=== PATIENT | female | born 1985 | race Caucasian/White ===

== ENCOUNTER → 2016-11-15 | Outpatient (CLI) | payer OTHER ==
--- NOTE | 2016-11-15 13:42 | REPMRS ---
Patient History The patient states she has not had a clinical breast exam in over a year. Family history of endometrial cancer in mother at age 47, breast cancer in paternal aunt, and colorectal cancer in maternal grandmother at age 72. Benign stereotactic core biopsy of the left breast, 2012. Taking hormonal contraceptives for 16 years. Digital Mammo Screening Bilat: November 15, 2016 - Exam #: [id number] Bilateral CC and MLO view(s) were taken. Technologist: Suzanne Church, Technologist No prior studies available for comparison. FINDINGS: The breast tissue is extremely dense which could obscure a lesion on mammography. There is no evidence of cancer on this mammogram. ASSESSMENT: BI-RADS/ACR category 2 mammogram. Benign finding(s). Recommendation Routine screening mammogram of both breasts in 1 year (for women over age 40). This mammogram was interpreted with the aid of an FDA-approved computer-aided dectection system. Electronically Signed By: Wes Ralph MD 11/15/16 5189
== END ==
LOC: M RAD 12:19
PROVIDERS: ATTEND Physician Assistant
DX: Z12.31 Encounter for screening mammogram for malignant neoplasm of breast (principal)

== ENCOUNTER → 2017-04-30 | Outpatient (REF) | payer OTHER ==
[2017-04-30 18:35] LABS: RETIC HEMOGLOBIN EQUIVALENT 36.3 pg (24-36); RETICULOCYTE # 70.8 10^9/L (17-77); RETICULOCYTE % 1.7 % (0.5-1.5)
[2017-04-30 18:40] LABS: FOLATE 21.4 NG/ML; VITAMIN B12 LEVEL 219 PG/ML
[2017-04-30 18:43] LABS: FERRITIN 31 NG/ML (8-252); IRON (FE) 104 UG/DL (50-170); TOTAL IRON BINDING CAPACITY 472 UG/DL (250-450)
[2017-04-30 19:05] LABS: ERYTHROCYTE SEDIMENTATION RATE 19 mm/hr (0-20)
[2017-05-02 10:14] LABS: HAPTOGLOBIN 126 mg/dL (34-200)
[2017-05-02 10:14] LABS: ANTINUCLEAR ANTIBODIES DIRECT Negative (Negative)
== END ==
LOC: M LAB REF 17:08
DX: D64.9 Anemia, unspecified (principal)
CPT/HCPCS: 82746

== ENCOUNTER → 2017-08-01 | Outpatient (REF) | payer OTHER ==
[2017-08-01 17:24] LABS: FERRITIN 76 NG/ML (8-252); IRON (FE) 85 UG/DL (50-170); TOTAL IRON BINDING CAPACITY 386 UG/DL (250-450)
[2017-08-01 17:30] LABS: VITAMIN B12 LEVEL 182 PG/ML (247-911)
[2017-08-06 00:06] LABS: INTRINSIC FACTOR ANTIBODY 0.9 AU/mL (0.0-1.1)
== END ==
LOC: M LAB REF 16:34
DX: D50.9 Iron deficiency anemia, unspecified (principal)